=== PATIENT | male | born 1940 | race Two or more races ===

== ENCOUNTER 2018-04-29 07:46 | Outpatient (CLI) | payer OTHER | END 2018-04-29 07:49 | disposition home or self-care (01) | LOC: TOM 07:46 | DX: K63.5 Polyp of colon (principal) ==

== ENCOUNTER 2019-02-14 16:30 | Emergency (ER) | payer OTHER ==
[~2019-02-14] VITALS: Ht 170.2 cm; Wt 71.7 kg
== END 2019-02-14 22:39 | disposition home or self-care (01) ==
LOC: ER 16:38
DX: I48.91 Unspecified atrial fibrillation (principal)

== ENCOUNTER 2019-02-17 08:46 | Emergency (ER) | payer OTHER ==
[~2019-02-17] VITALS: Ht 170.2 cm; Wt 72.6 kg
== END 2019-02-17 15:31 | disposition home or self-care (01) ==
LOC: ER 08:46
DX: R13.19 Other dysphagia (principal)

== ENCOUNTER 2019-03-08 14:35 | Emergency (ER) | payer OTHER ==
[~2019-03-08] VITALS: Ht 170.2 cm; Wt 76.2 kg
[2019-03-08] MEDS ORDERED: LOSARTAN POTAS100 MG (14:56)
[2019-03-08] MEDS ORDERED: TOPROL XL25 M1 (14:56)
[2019-03-08] MEDS ORDERED: ELIQUIS5 MG (14:57)
== END 2019-03-08 21:23 | disposition home or self-care (01) ==
LOC: ER 14:35 → CPU-OBS 15:26 → ER 21:23
DX: I47.1 Supraventricular tachycardia (principal)

== ENCOUNTER 2019-04-09 11:50 | Emergency (ER) | payer OTHER ==
[~2019-04-09] VITALS: Ht 170.2 cm; Wt 76.2 kg
[~2019-04-09 11:50] MED LIST: ELIQUIS5 MG; LOSARTAN POTAS100 MG; TOPROL XL25 M1
== END 2019-04-09 16:06 | disposition home or self-care (01) ==
LOC: ER 11:50
DX: M54.89 Other dorsalgia (principal); M54.2 Cervicalgia; R53.81 Other malaise; F41.8 Other specified anxiety disorders

== ENCOUNTER 2019-05-14 10:56 | Emergency (ER) | payer OTHER ==
[~2019-05-14] VITALS: Ht 170.2 cm; Wt 69.9 kg
[2019-05-14] MEDS ORDERED: NORVASC5 MG (11:17)
== END 2019-05-14 17:00 | disposition home or self-care (01) ==
LOC: ER 10:56 → CPU-OBS 11:18 → ER 11:18
DX: R07.89 Other chest pain (principal)

== ENCOUNTER 2019-05-27 06:20 | Day surgery (SDC) | payer OTHER ==
[~2019-05-27 06:20] MED LIST changes: +NORVASC5 MG
== END 2019-05-27 11:55 | disposition home or self-care (01) ==
LOC: CIR.AMB 06:20
DX: M50.223 Other cervical disc displacement at C6-C7 level (principal)